=== PATIENT | male | born 1975 | race Caucasian/White ===

== ENCOUNTER 2020-11-20 13:45 | Emergency (ER) | payer MEDICARE ==
[~2020-11-20] VITALS: Ht 175.3 cm; Wt 116.8 kg
[2020-11-20 13:48] VITALS: Ht 175.3 cm; Wt 116.8 kg
[2020-11-20] MEDS ORDERED: LISINOPRIL10 MG PO (13:50)
[2020-11-20] MEDS ORDERED: PROZAC20 MG PO (13:51)
[2020-11-20] MEDS ORDERED: KLONOPIN1 MG PO (13:51)
[2020-11-20 14:38] LABS: BASOPHILS 0.3 % (0-2); HEMATOCRIT 43.8 % (42.0-54.0); HEMOGLOBIN 14.7 g/dL (13.5-17.5); IMMATURE GRANULOCYTES 0.3 % (0-5); LYMPHOCYTE ABS# 1.51 10x3/uL (1.32-3.57); LYMPHOCYTES 13.4 % (15-50); MCH 30.1 pg (26.0-34.0); MCHC 33.6 g/dL (31.0-37.0); MCV 89.6 fL (80.0-100.0); MEAN PLATELET VOLUME 9.6 fL (7.4-10.4); MONOCYTES 8.8 % (2-11); NEUTROPHIL ABS# 8.57 10x3/uL (1.78-5.38); NEUTROPHILS 76.2 % (40-80); PLATELET COUNT 227 10x3/uL (130-400); RBC 4.89 10x6/uL (4.20-6.10); RDW 13.1 % (11.5-14.5); WBC 11.2 10x3/uL (4.8-10.8)
[2020-11-20 14:48] LABS: APTT 24.9 SECONDS (22.8-39.4); INR 1.08 (0.85-1.17)
[2020-11-20 14:53] LABS: ANION GAP 12.9 mmol/L (8-16); CALCIUM 8.8 mg/dL (8.5-10.1); CARBON DIOXIDE 29.2 mmol/L (21.0-32.0); CREATININE - SERUM 1.7 mg/dL (0.6-1.3); POTASSIUM - SERUM 4.1 mmol/L (3.5-5.1)
[2020-11-20 14:58] LABS: ALBUMIN 3.7 g/dL (3.4-5.0); BILIRUBIN - TOTAL 0.55 mg/dL (0.2-1.3); PROTEIN - SERUM 7.2 g/dL (6.4-8.2)
[2020-11-20 15:30] VITALS: BP 129/90
== END 2020-11-20 16:31 | disposition home or self-care (01) ==
LOC: D.ER 13:45
PROVIDERS: Family Medicine
DX: M54.9 Dorsalgia, unspecified (principal); M54.2 Cervicalgia; M79.10 Myalgia, unspecified site; N20.1 Calculus of ureter; N28.9 Disorder of kidney and ureter, unspecified; V89.2XXA Person injured in unspecified motor-vehicle accident, traffic, initial encounter; Y93.9 Activity, unspecified; Y92.9 Unspecified place or not applicable; T14.8XXA Other injury of unspecified body region, initial encounter